=== PATIENT | male | born 1965 | race Caucasian/White ===

== ENCOUNTER 2025-04-11 12:12 | Emergency (ER) | payer BC ==
[2025-04-11 13:12] LABS: BASOPHILS ABSOLUTE AUTO 0.02 K/uL (0.02-0.10); BASOPHILS PERCENT AUTO 0.2 % (0.0-0.5); EOSINOPHILS ABSOLUTE AUTO 0.23 K/uL (0.04-0.40); EOSINOPHILS PERCENT AUTO 2.6 % (1.0-5.0); HEMATOCRIT 41.4 % (40.0-54.0); HEMOGLOBIN 13.8 g/dL (13.0-18.0); LYMPHOCYTES ABSOLUTE AUTO 1.77 K/uL (1.50-4.00); LYMPHOCYTES PERCENT AUTO 20.1 % (20.0-40.0); MEAN CORPUSCULAR HEMOGLOBIN 32.1 pg (27.0-32.0); MEAN CORPUSCULAR HGB CONC 33.3 g/dL (31.0-35.0); MEAN CORPUSCULAR VOLUME 96 fL (76-96); MEAN PLATELET VOLUME 9.2 fL (6.0-10.0); MONOCYTES ABSOLUTE AUTO 0.76 K/uL (0.20-0.80); MONOCYTES PERCENT AUTO 8.6 % (3.0-10.0); NEUTROPHILS ABSOLUTE AUTO 6.02 K/uL (2.00-7.50); NEUTROPHILS PERCENT AUTO 68.5 % (45.0-70.0); PLATELET COUNT,PLT 202 K/uL (150-400); RED CELL DISTRIBUTION WIDTH 13.4 % (11.0-16.0); WHITE BLOOD CELL COUNT,WBC 8.8 K/uL (4.0-11.0)
[2025-04-11] MEDS: diphenhydrAMINE 50 MG Cap PO ONE (13:38)
[2025-04-11] MEDS: methylPREDNISolone Sodium Succinate 125 MG/2 ML SDV IM ONE (13:39)
== END 2025-04-11 13:56 | disposition home or self-care (01) ==
LOC: LB.ED 12:12
DX: L23.9 Allergic contact dermatitis, unspecified cause (principal); Z88.0 Allergy status to penicillin
CPT/HCPCS: 36415; 85025; 86140; 96372; 99283; A9270; J2919